=== PATIENT | male | born 1970 | race Caucasian/White ===

== ENCOUNTER 2020-04-15 14:12 | Emergency (ER) | payer OTHER, SELFPAY ==
--- NOTE | ~2020-04-15 | CT_ITS ---
EXAMINATION: CT abdomen pelvis w con EXAM DATE: 04/15/2020 15:59 INDICATION: Right-sided abdominal pain. Constipation. TECHNIQUE: Spiral CT of the abdomen and pelvis was performed following intravenous injection of 100 m L Omnipaque 350. Axial, coronal and sagittal images were reviewed. The dose-length product (DLP) fo r this examination was 1680.72 mGy-cm. The exposure was tailored according to patient size (auto mA exposure control), and iterative reconstruction (ASIR) was used as additional dose reduction techniqu e. Comparison is made to prior examination from 03/06/2018. FINDINGS: There is a hypodensity in the left liver lobe medial segment measuring 1.3 cm consistent wi th a cyst. The spleen, pancreas, and adrenal glands are unremarkable. There are gallstones within a n otherwise unremarkable gallbladder. No evidence of obstructive biliary disease. Portal and spleni c veins are patent. Kidneys enhance symmetrically. There is no hydronephrosis. The prostate is un remarkable. The bladder is unremarkable. There is no retroperitoneal or pelvic lymphadenopathy. S mall bilateral inguinal fat-containing hernias. The appendix is normal. The stomach and small bowel are unremarkable. There is expected amount of c olonic stool. No free intraperitoneal gas. The heart is normal in size. There are no pericardial or pleural effusions. The lung bases are unremarkable. There are no osteoblastic or osteolytic les ions identified. IMPRESSION: 1. No acute intra-abdominal findings. 2. Cholelithiasis. Reviewed, dictated and finalized at location A.
[2020-04-15 14:25] VITALS: BP 161/69; PULSE 93; RESP 20; TEMP 37.1; O2SAT 96
--- NOTE | 2020-04-15 14:31 | ED.ABDPAIN ---
HPI - Abdominal Pain General Chief Complaint: Abdominal Pain Stated Complaint: abd pain Time Seen by Provider: 04/15/20 14:16 Source: RN notes reviewed History of Present Illness HPI narrative: Patient presents emergency department from home for right lower quadrant ivy pain. Patient states that symptoms began this morning. Pain is located in the right lower quadrant radiates into the right testicle. Pain is described as sharp and stabbing. Patient states he has had similar intermittent pain over the past 2 months. He denies any fevers or chills nausea vomiting diarrhea dysuria or any other symptoms. He states he took ibuprofen at home with minimal relief Related Data Home Medications Medication Instructions Recorded Confirmed bupropion HCl 200 mg PO BID 04/15/20 trazodone 100 mg PO HS 04/15/20 vortioxetine [Trintellix] 20 mg PO DAILY 04/15/20 Allergies Allergy/AdvReac Type Severity Reaction Status Date / Time No Known Allergies Allergy Mild Verified 04/15/20 14:32 Review of Systems Review of Systems: Narrative: Gen.: Denies fevers or chills ENT: Denies congestion Respiratory: Denies shortness of breath or cough CV: Denies chest pain or palpitations GI: See HPI denies burning, urgency, frequency or hematuria Musculoskeletal: Denies back pain or muscle pain Neuro: Denies numbness, tingling, weakness or focal weakness Skin: Denies rash Except as documented, all other systems reviewed and negative PMFSH Past Medical History Medical History (Updated 04/15/20 @ 16:22 by Howie Del Valle DO) Patient denies significant medical history Social History Social History (Updated 04/15/20 @ 14:32 by Howie Del Valle DO) Smoking status: Never smoker Gender identity (if verbalized by the patient): Female Exam Narrative: Exam Narrative: APPEARANCE: No acute distress, nontoxic, resting in bed HEENT: Normocephalic, atraumatic, OMM RESPIRATORY: No respiratory distress, clear to auscultation bilaterally with no rhonchi wheezing or rales CARDIOVASCULAR: RRR s murmur ABDOMINAL: Soft, nondistended, tender palpation right upper quadrant, no tenderness right lower quadrant, left upper quadrant left lower quadrant, no rebound or guarding MUSCULOSKELETAl: Moves all extremities. No clubbing, cyanosis or edema. NEURO: Awake and alert. Following commands, speech normal, no focal deficits SKIN:: Warm, dry. Normal Color PSYCHIATRIC: Normal affect/mood Course Course Emergency Course: Patient states that they are feeling much better at this time. States abdominal pain has resolved. Repeat abdominal exam shows the patient's abdomen to be soft and nontender. Discussed with patient results of workup and diagnosis. Discussed need for follow-up with primary care physician, reasons to return to the emergency department in proper use of medication. Patient understands and agrees to current treatment plan. Discussed with patient gallstones need to follow-up with PCP as an outpatient Vital Signs Vital signs: Vital Signs Temperature 98.8 F 04/15/20 14:25 Pulse Rate 93 04/15/20 14:25 Respiratory Rate 20 04/15/20 14:25 Blood Pressure 161/69 H 04/15/20 14:25 Pulse Oximetry 96 04/15/20 14:25 Temperature 98.8 F 04/15/20 14:25 Pulse Rate 93 04/15/20 14:25 Respiratory Rate 20 04/15/20 14:25 Blood Pressure 161/69 H 04/15/20 14:25 Pulse Oximetry 96 04/15/20 14:25 MDM - Abdominal Pain MDM Narrative Medical decision making narrative: Patient's abdomen is soft without significant pain or signs of surgical abdomen on serial exams. Lab and x-ray evaluations are reviewed and patient is felt to be a reasonable candidate for outpatient management. Patient was instructed as to limitations of x-ray and laboratory evaluation and encouraged to return to ED or primary physician for repeat exam in 12 hours if continued or worsening pain Lab Data Result diagrams: 04/15/20 15:03 04/15/20 15:03
[2020-04-15] MEDS: SODIUM CHLORIDE 0.9% IV 1,000 ML 999 ML IV CONT (14:55)
[2020-04-15 15:24] LABS: Basophils Absolute Auto 0.1 K/mm3 (0.0-0.1); Basophils Percent Auto 1.1 % (0.2-1.2); Eosinophils Absolute Auto 0.2 K/mm3 (0-0.3); Eosinophils Percent Auto 2.8 % (0-4.4); Hematocrit 41.1 % (42.0-52.0); Hemoglobin 14.1 g/dL (14.0-18.0); Immature Granulocyte Absolute 0.03 K/mm3 (0.00-0.031); Immature Granulocyte Percent A 0.4 % (0-0.5); Lymphocytes Absolute Auto 2.16 K/mm3 (0.9-3.2); Lymphocytes Percent Auto 27.3 % (18.3-44.2); Mean Corpuscular HGB Conc 34.3 g/dl (32-36); Mean Corpuscular Hemoglobin 30.1 pg (26-34); Mean Corpuscular Volume 87.8 fl (80-100); Mean Platelet Volume 9.3 fl (7.4-10.4); Monocytes Absolute Auto 0.7 K/mm3 (0.1-0.6); Monocytes Percent Auto 8.7 % (2.6-8.5); Neutrophils Absolute Auto 4.7 K/mm3 (1.3-6.7); Neutrophils Percent Auto 59.7 % (45.5-73.1); Platelet Count Result 265 k/mm3 (150-375); Red Blood Count 4.68 M/mm3 (4.6-6.20); Red Cell Distribution Width 12.3 % (11.5-14.5); White Blood Count 7.9 K/mm3 (4.5-10.0)
[2020-04-15 15:25] LABS: Alanine Aminotransferase 36 U/L (4-50); Albumin Level 4.2 g/dL (3.5-5.1); Alkaline Phosphatase 92 U/L (38-126); Aspartate Amino Transferase 31 U/L (17-59); Bilirubin,Total 0.3 mg/dL (0.2-1.3); Blood Urea Nitrogen 9 mg/dL (9-20); Carbon Dioxide 25 mmol/L (22-30); Chloride 104 mmol/L (98-107); Estimated CRCL calculation 119 ml/min; Estimated Glomerular Filt Rate > 60; Glucose 97 mg/dL (75-110); Lipase 68 U/L (23-300); Potassium 4.1 mmol/L (3.4-5.0); Sodium 137 mmol/L (137-145)
[2020-04-15 15:28] LABS: Add Urine Microscopic? YES; Appearance Urine Clear (Clear); Bilirubin Urine Negative (Negative); Blood Urine Negative (Negative); Color Urine Yellow (Yellow); Glucose Urine UA Negative (Negative); Ketones Urine Negative (Negative); Leukocyte Esterase Ur Trace LEU/UL (Negative); Nitrate Urine Negative (Negative); Protein Urine Negative (Negative); RBC Urine 0-2 /hpf (0-2); Urobilinogen Urine Negative mg/dL (<2.0); WBC Urine 0-3 /hpf
[2020-04-15 16:00] VITALS: PULSE 75; RESP 20; O2SAT 98
[2020-04-15 16:45] VITALS: BP 127/70; PULSE 76; RESP 20; O2SAT 98
== END 2020-04-15 17:01 | disposition home or self-care (01) ==
PROVIDERS: Emergency Provider Emergency Medicine; PCP Family Medicine Adolescent Medicine
DX: K80.20 Calculus of gallbladder without cholecystitis without obstruction (principal)
CPT/HCPCS: 36415; 74177; 80053; 81001; 83690; 85025; 96361; 96365; 99284; J0131; J7030; Q9967

== ENCOUNTER 2020-04-17 06:28 | Emergency (ER) | payer OTHER, SELFPAY ==
[2020-04-17] VITALS (11 sets, daily range): BP systolic 138–153; BP diastolic 60–78; PULSE 72–87; RESP 20; TEMP 37.1; O2SAT 96–98
--- NOTE | ~2020-04-17 | US_ITS ---
US scrotum doppler INDICATION: Right upper quadrant abdominal pain radiating to the right testicle TECHNIQUE: Testicular sonogram utilizing grayscale and color Doppler FINDINGS: The testes are normal in size and appearance. No focal lesions are seen. The right testes measures 4.3 x 2.8 x 2.3 cm centimeters, and the left testis measures 3.8 x 2.6 x 2.1 cm cm. There is normal vascular flow to both testes. The right and left epididymides appear normal. There is a small right hydrocele. There is a right varicocele. IMPRESSION: 1. Right varicocele. 2: Small right hydrocele. Reviewed, dictated and finalized at location A.
--- NOTE | ~2020-04-17 | US_ITS ---
US right upper quadrant INDICATION: Right upper quadrant abdominal pain. Gallstones. PROCEDURE: Realtime right upper abdominal ultrasound. COMPARISON: No prior studies for comparison. FINDINGS: Pancreas not well visualized due to bowel gas. There is a complicated 2.5 cm cyst with int ernal septations. There is normal directional flow in the portal vein. There are gallstones. Common bile duct measures 3 mm. No sonographic Young's sign. IMPRESSION: 1: Cholelithiasis. No secondary findings to suggest cholecystitis. Reviewed, dictated and finalized at location A.
--- NOTE | 2020-04-17 06:32 | ED.ABDPAIN ---
HPI - Abdominal Pain General Chief Complaint: Abdominal Pain <Nely Mehta MD - Last Filed: 04/17/20 07:16> Stated Complaint: abd pain <Nely Mehta MD - Last Filed: 04/17/20 07:16> Time Seen by Provider: 04/17/20 06:32 <Nely Mehta MD - Last Filed: 04/17/20 07:16> Source: patient <Nely Mehta MD - Last Filed: 04/17/20 07:16> Mode of arrival: ambulatory <Nely Mehta MD - Last Filed: 04/17/20 07:16> Limitations: no limitations <Nely Mehta MD - Last Filed: 04/17/20 07:16> History of Present Illness HPI narrative: Patient is a 50-year-old male who presents to the emergency department for evaluation of abdominal pain. Patient reports onset of right upper quadrant abdominal pain earlier this morning. Pain is currently moderate in nature with radiation into the right middle back and right flank. Patient also reports some radiation of the pain into his right testicle. No painful urination, frequency or hematuria. Patient states he was seen in this emergency department 2 days ago and told he had gallstones. He has no known history of kidney stones per the patient. Patient reports nausea without emesis. No fever. No diarrhea or constipation. Patient also reports pain underneath his right breastbone. Patient denies shortness of breath. <Nely Mehta MD - Last Filed: 04/17/20 07:16> Related Data Home Medications: Home Medications Medication Instructions Recorded Confirmed bupropion HCl 200 mg PO BID 04/15/20 trazodone 100 mg PO HS 04/15/20 vortioxetine [Trintellix] 20 mg PO DAILY 04/15/20 <Nely Mehta MD - Last Filed: 04/17/20 07:16> Allergies/Adverse Reactions: Allergies Allergy/AdvReac Type Severity Reaction Status Date / Time No Known Allergies Allergy Mild Verified 04/15/20 14:32 <Nely Mehta MD - Last Filed: 04/17/20 07:16> Review of Systems Review of Systems: Narrative: CONSTITUTIONAL: Denies fever, chills, or sweats. CARDIOVASCULAR: Reports right-sided chest pain RESPIRATORY: Denies cough or dyspnea. GASTROINTESTINAL: Reports right-sided abdominal pain, nausea GENITOURINARY: Denies dysuria or hematuria. SKIN: Denies rash or itching. MUSCULOSKELETAL: Reports right back pain NEUROLOGIC: Denies headache, numbness, or weakness. <Nely Mehta MD - Last Filed: 04/17/20 07:16> [facility] Past Medical History Medical History: Medical History (Updated 04/17/20 @ 08:48 by Bianca Matta MD) Asthma Depression Patient denies significant medical history <Nely Mehta MD - Last Filed: 04/17/20 07:16> Surgical History Surgical History: Surgical History (Updated 04/17/20 @ 11:09 by Lois Shaw) Cataract extraction status <Nely Mehta MD - Last Filed: 04/17/20 07:16> Family History Family History: Family History (Updated 04/17/20 @ 11:10 by Lois Shaw) Father Malignant neoplasm of prostate Grandparent Heart disease <Nely Mehta MD - Last Filed: 04/17/20 07:16> Social History Social History: Social History (Updated 04/17/20 @ 11:13 by Lois Shaw) Smoking status: Former smoker Smoking end date: 11/07/99 Alcohol use details: Very rare alcohol use Gender identity (if verbalized by the patient): Female <Nely Mehta MD - Last Filed: 04/17/20 07:16> Exam Narrative: Exam Narrative: GENERAL: Awake, alert, conversant HEAD: Normocephalic, atraumatic. EYES: PERRLA and EOMI. ENT: Nares clear, no rhinorrhea or epistaxis. Mucous membranes moist. NECK: Supple. CHEST: No respiratory distress, breathing even and non labored HEART: Regular rate, sinus rhythm ABDOMEN: Mild distention, right upper quadrant tenderness, no CVA tenderness EXTREMITIES: Normal range of motion. No edema. SKIN: Warm, dry, no rash. NEURO:No focal deficits. Alert and oriented x3 <Nely Mehta MD - Last Filed: 04/17/20 07:1
--- NOTE | 2020-04-17 06:39 | ECG_ITS ---
Measurements Intervals [place] Rate: 80 P: 28 WI: 133 QRS: 13 QRSD: 97 T: 29 QT: 366 QTc: 422 Interpretive Statements SINUS RHYTHM LOW QRS VOLTAGE IN PRECORDIAL LEADS BASELINE ARTIFACT- V1 BORDERLINE ECG Electronically Signed On 04-17-2020 7:08:53 CDT by Rick Saucedo D.O.
[2020-04-17] MEDS: ONDANSETRON INJ 4 MG/2 ML VIAL IV PUSH (06:47)
[2020-04-17] MEDS: MORPHINE SULFATE 4 MG/ML INJ IV PUSH (06:48)
[2020-04-17] MEDS: SODIUM CHLORIDE 0.9% IV 1,000 ML 999 ML IV CONT (06:48)
[2020-04-17 06:52] LABS: Basophils Absolute Auto 0.1 K/mm3 (0.0-0.1); Basophils Percent Auto 0.8 % (0.2-1.2); Eosinophils Absolute Auto 0.2 K/mm3 (0-0.3); Eosinophils Percent Auto 2.5 % (0-4.4); Hematocrit 41.5 % (42.0-52.0); Hemoglobin 14.1 g/dL (14.0-18.0); Immature Granulocyte Absolute 0.02 K/mm3 (0.00-0.031); Immature Granulocyte Percent A 0.2 % (0-0.5); Lymphocytes Percent Auto 22.9 % (18.3-44.2); Mean Corpuscular Hemoglobin 30.5 pg (26-34); Mean Corpuscular Volume 89.6 fl (80-100); Mean Platelet Volume 9.5 fl (7.4-10.4); Monocytes Absolute Auto 0.7 K/mm3 (0.1-0.6); Monocytes Percent Auto 7.6 % (2.6-8.5); Neutrophils Absolute Auto 6.1 K/mm3 (1.3-6.7); Platelet Count Result 257 k/mm3 (150-375); Red Blood Count 4.63 M/mm3 (4.6-6.20); Red Cell Distribution Width 12.3 % (11.5-14.5); White Blood Count 9.2 K/mm3 (4.5-10.0)
[2020-04-17 07:03] LABS: INR 1.1; Prothrombin Time 13.9 Seconds (11.1-14.7)
[2020-04-17 07:05] LABS: Partial Thromboplastin Time 28.2 SECONDS (22.3-36.8)
[2020-04-17 07:10] LABS: Alanine Aminotransferase 33 U/L (4-50); Albumin Level 4.3 g/dL (3.5-5.1); Alkaline Phosphatase 93 U/L (38-126); Aspartate Amino Transferase 34 U/L (17-59); Bilirubin,Total 0.3 mg/dL (0.2-1.3); Blood Urea Nitrogen 13 mg/dL (9-20); Calcium 8.5 mg/dL (8.4-10.2); Carbon Dioxide 24 mmol/L (22-30); Chloride 105 mmol/L (98-107); Estimated Glomerular Filt Rate > 60; Glucose 117 mg/dL (75-110); Lipase 101 U/L (23-300); Potassium 4.3 mmol/L (3.4-5.0); Sodium 137 mmol/L (137-145)
[2020-04-17 07:15] LABS: Troponin I < 0.012 ng/mL (0.000-0.034)
--- NOTE | 2020-04-17 08:20 | PC.NURSE ---
Sleeping. In no distress.
[2020-04-17 08:27] LABS: Add Urine Microscopic? NO; Appearance Urine Clear (Clear); Bilirubin Urine Negative (Negative); Blood Urine Negative (Negative); Color Urine Colorless (Yellow); Glucose Urine UA Negative (Negative); Ketones Urine Negative (Negative); Leukocyte Esterase Ur Negative LEU/UL (Negative); Nitrate Urine Negative (Negative); Protein Urine Negative (Negative); RBC Urine 0-2 /hpf (0-2); Specific Grav Ur 1.008 (1.001-1.035); Urobilinogen Urine Negative mg/dL (<2.0); WBC Urine 0-3 /hpf
== END 2020-04-17 09:45 | disposition home or self-care (01) ==
PROVIDERS: Emergency Medicine; Emergency Provider General Practice; PCP Family Medicine Adolescent Medicine
DX: K80.20 Calculus of gallbladder without cholecystitis without obstruction (principal); J45.909 Unspecified asthma, uncomplicated; F32.9 Major depressive disorder, single episode, unspecified; Z98.49 Cataract extraction status, unspecified eye; Z87.891 Personal history of nicotine dependence; I86.1 Scrotal varices; N43.3 Hydrocele, unspecified
CPT/HCPCS: 36415; 76705; 76870; 80053; 81003; 83690; 84484; 85025; 85610; 85730; 93005; 93976; 96361; 96374; 96375; 99284; J2270; J2405; J7030

== ENCOUNTER 2020-04-25 00:46 | Outpatient (CLI) | payer OTHER, SELFPAY ==
[2020-04-25 17:52] LABS: SARS-CoV-2 RNA PCR Negative
== END 2020-04-25 00:47 | disposition home or self-care (01) ==
LOC: ANHCOVIDDT 00:47
PROVIDERS: PCP Family Medicine Adolescent Medicine; Visit Provider Surgery
DX: Z20.828 Contact with and (suspected) exposure to other viral communicable diseases (principal); Z01.812 Encounter for preprocedural laboratory examination
CPT/HCPCS: 87635; C9803; U0003

== ENCOUNTER 2020-04-25 09:34 | Outpatient (CLI) | payer OTHER, SELFPAY ==
[2020-04-25 10:27] LABS: Amylase 56 U/L (30-110)
== END 2020-04-25 09:35 | disposition home or self-care (01) ==
PROVIDERS: PCP Family Medicine Adolescent Medicine; Visit Provider Surgery
DX: K80.20 Calculus of gallbladder without cholecystitis without obstruction (principal); Z01.812 Encounter for preprocedural laboratory examination
CPT/HCPCS: 36415; 82150; 86850; 86900; 86901

== ENCOUNTER 2020-04-28 02:39 | Day surgery (SDC) | payer OTHER, SELFPAY ==
[2020-04-23 10:29] VITALS: BMI 39.3
[2020-04-28] VITALS (10 sets, daily range): BP systolic 117–146; BP diastolic 51–91; PULSE 56–81; RESP 10–16; TEMP 36.6–36.7; O2SAT 94–100
[2020-04-28] MEDS: LACTATED RINGERS 1,000 ML 30 ML IV CONT ×2 (06:30→08:40)
--- NOTE | 2020-04-28 06:51 | WPDANESEPPF ---
Anes - Initial Pre Proc Eval Procedure: Operation Date: 04/28/20 07:30 Proposed Procedures p Laparoscopic Cholecystectomy - Ilana Abbott MD Date/Time: 04/28/20 06:51 Surgeon: Ilana Abbott MD Pre Op Diagnosis: Symptomatic Cholelithiasis Patient Data Age: 50 Gender: M Height: 1.83 m Weight: 131.54 kg Allergies Allergy/AdvReac Type Severity Reaction Status Date / Time No Known Allergies Allergy Mild Verified 04/23/20 10:06 Home Medications Medication Instructions Recorded Confirmed Type bupropion HCl 200 mg PO BID 04/15/20 04/23/20 History famotidine [Pepcid] 20 mg PO DAILY #14 tablet 04/15/20 04/23/20 Rx trazodone 100 mg PO HS 04/15/20 04/23/20 History vortioxetine [Trintellix] 20 mg PO DAILY 04/15/20 04/23/20 History hydrocodone-acetaminophen 1 tablet PO Q6H PRN #7 tablet 04/17/20 04/23/20 Rx multivitamin 1 tablet PO DAILY 04/23/20 04/23/20 History Patient hx anesthesia problems: none Family hx anesthesia problems: none COUNTS INCLUDE 234 BEDS AT THE [facility] Past Medical History Medical History (Updated 04/22/20 @ 13:58 by Lois Shaw) Asthma Depression Surgical History Surgical History (Updated 04/25/20 @ 13:18 by Seth Sears DO) Cataract extraction status History of uvulopalatopharyngoplasty Social History Social History (Updated 04/22/20 @ 13:28 by Mary Agustin MA) Smoking status: Former smoker Smoking end date: 11/07/99 Alcohol intake: current Substance use: unknown 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 Questions were solicited and answers provided to the satisfaction of the patient/family/POA.
[2020-04-28] MEDS: IBUPROFEN IV 800 MG/200 ML 800 MG/200 ML BAG 400 MG IVPB (07:00)
--- NOTE | 2020-04-28 07:19 | WPDHPUPDATE1 ---
History and Physical Update Update Date/Time: 04/28/20 07:19 History and Physical has been reviewed, including an updated exam of the patient. There are NO changes in the patient's condition. Risks, benefits, and alternatives have been discussed and questions answered. Patient agrees to proceed with procedure.
[2020-04-28] MEDS: ceFAZolin 3 GM/D5W 100 ML 100 ML IVPB (07:25)
[2020-04-28] MEDS: BUPIVACAINE/EPINEPHRINE 0.5% 30 ML VIAL INFILTRATE (07:57)
--- NOTE | 2020-04-28 08:43 | PM.PROC ---
Procedure Note - Detailed Date of procedure: 04/28/20 Pre-op diagnosis: Symptomatic Cholelithiasis Post-op diagnosis: other (cholecystitis, cholelithiasis) Procedure performed: laparoscopic cholecystectomy Description of procedure: The patient was taken to the operating room placed in the supine position. After adequate induction of general anesthesia, the patient was prepped and draped in normal sterile fashion. A time-out was then performed to verify the patient's identity as well as the procedure being performed. I then made a 5 mm incision in the infraumbilical region. Through this, a Veress needle was placed into the peritoneal cavity and CO2 gas was then insufflated. After adequate pneumoperitoneum was achieved, the Veress needle was removed and a 5 mm trocar was placed through this incision. I then placed the laparoscope through this trocar site and under direct visualization placed a further 12 mm subxiphoid port as well as 2 additional 5 mm ports in the right upper abdomen. The gallbladder was then identified and was noted to be inflamed and densely covered with omental adhesions. I cleared the omental adhesions both bluntly and with electrocautery. Once cleared, I was able to place a grasper at the dome of the gallbladder and this was retracted anterior and cephalad up over the liver. A 2nd retractor was then placed at the infundibulum and retracted laterally, this allowed visualization of the triangle of Calot. I then was able to visualize the cystic duct in its entirety from its proximal insertion into the gallbladder, to its distal junction with the common hepatic/common bile duct junction. At this point, I carefully skeletonized the proximal cystic duct with the [place] dissector. I then clipped and transected the proximal cystic duct. Next I visualized the cystic artery. Again the artery was skeletonized, clipped, and transected. I then used the Bovie cautery to take down the peritoneal attachments of the gallbladder off the liver bed. This was done with difficulty, given the amount of inflammation and adhesions. Once the gallbladder specimen was completely detached, an endo-pouch was placed through the 12 mm port site. I then placed the gallbladder specimen into the Endo pouch and removed the endo-pouch from the 12 mm port site. The specimen will now be sent to pathology for further review. I then copiously irrigated the right upper quadrant. Hemostasis was noted in the liver bed, the clips were noted to be in good position on both the cystic duct stump and the cystic artery stump. No other pathology was noted in the right upper quadrant. I then moved the laparoscope to the subxiphoid port. No iatrogenic injury or other pathology was noted in the lower abdomen. At this point, the abdomen was desufflated and all ports removed. The fascia of the 12 mm subxiphoid port was closed with a 0 Vicryl figure of 8 suture. All port sites were then closed with 4.O Monocryl subcuticular sutures. Dermabond was placed on each incision. The patient tolerated the procedure well, was extubated in the operating room postoperative and will be transferred to the recovery room in stable condition. Implants: none Anesthesia: [facility] Surgeon: Ilana Abbott MD Estimated blood loss (mL): 5 Drains: No Packing: No Pathology: yes Complications: No immediate complications Condition: stable Disposition: PACU
--- NOTE | 2020-04-28 09:50 | SUR.PHASEI ---
0950 - PT'S FAMILY UPDATED ON PT'S STATUS.
== END 2020-04-28 11:01 | disposition home or self-care (01) ==
PROVIDERS: PCP Family Medicine Adolescent Medicine; Visit Provider Surgery
PROC: 0FT44ZZ Resection of Gallbladder, Percutaneous Endoscopic Approach (ICD-10-PCS; CPT 47562; principal; 2020-04-28 07:30)
DX: K80.10 Calculus of gallbladder with chronic cholecystitis without obstruction (principal); J45.909 Unspecified asthma, uncomplicated; F32.9 Major depressive disorder, single episode, unspecified; Z87.891 Personal history of nicotine dependence; E66.9 Obesity, unspecified; Z68.39 Body mass index [BMI] 39.0-39.9, adult
CPT/HCPCS: 47562; 88304; A9270; C1713; J0131; J0690; J1100; J1741; J2250; J2405; J2704; J2710; J3010; J7030; J7120

== ENCOUNTER 2021-01-13 09:32 | Outpatient (CLI) | payer OTHER, SELFPAY | END 2021-01-13 09:33 | disposition home or self-care (01) | LOC: ANHCOVIDVC 09:32 | PROVIDERS: PCP Family Medicine Adolescent Medicine | DX: Z23 Encounter for immunization (principal) | CPT/HCPCS: 0001A; 91300 ==

== ENCOUNTER 2021-02-03 09:27 | Outpatient (CLI) | payer OTHER, SELFPAY | END 2021-02-03 09:28 | disposition home or self-care (01) | LOC: ANHCOVIDVC 09:27 | PROVIDERS: PCP Family Medicine Adolescent Medicine | DX: Z23 Encounter for immunization (principal) | CPT/HCPCS: 0002A; 91300 ==

== ENCOUNTER 2021-12-09 21:44 | Emergency (ER) | payer OTHER, SELFPAY ==
--- NOTE | ~2021-12-09 | XR_ITS ---
EXAMINATION: XR finger 3rd LT min 2V EXAM DATE: 12/09/2021 22:04 INDICATION: drillbit vs finger . TECHNIQUE: Left 3rd finger frontal, lateral and oblique projections obtained and reviewed. There i s no prior study for comparison. FINDINGS: There are no acute fractures or dislocations identified. There is no subcutaneous gas. Th ere may be soft tissue puncture injury along the volar aspect of the distal phalanx. There are no ra diopaque foreign bodies. IMPRESSION: No acute osseous findings. Reviewed, dictated and finalized at location G. MIXER IMPRESSION: No acute osseous findings.
[2021-12-09 21:51] VITALS: BP 133/68; PULSE 83; RESP 16; TEMP 36.4; O2SAT 99
--- NOTE | 2021-12-09 22:05 | ED.UPPEXIN ---
HPI - Extremity Injury (Upper) General Chief Complaint: Extremity Injury, Upper Stated Complaint: finger injury Time Seen by Provider: 12/09/21 21:52 Source: patient Mode of arrival: ambulatory Limitations: no limitations History of Present Illness HPI narrative: 51-year-old otherwise healthy here with planes of puncture wound to the left third finger with a drill bit happened few hours ago at home. he states he is not up to date on tetanus. complaint: injury to: finger (left 3 rd finger ) Onset (ago): hour(s) (1) Other injuries: none Handedness: right Place: home Severity: mild Related Data Home Medications Medication Instructions Recorded Confirmed aripiprazole 2.5 mg 12/09/21 bupropion HCl 300 mg PO 12/09/21 vilazodone [Viibryd] 20 mg 12/09/21 Allergies Allergy/AdvReac Type Severity Reaction Status Date / Time No Known Allergies Allergy Mild Verified 12/09/21 21:53 Review of Systems Review of Systems: All systems reviewed & are unremarkable except as noted in HPI and below Constitutional: Constitutional: Reports no additional constitutional complaints Eyes: Eyes: Reports no additional eye complaints ENT: Reports system reviewed and no additional complaints, except as documented Cardiovascular: Cardiovascular: Reports no additional cardiovascular complaints Respiratory: Respiratory: Reports no additional respiratory complaints Gastrointestinal: Gastrointestinal: Reports no additional gastrointestinal complaints Musculoskeletal: Musculoskeletal: Reports as per HPI Integumentary/Breasts: Skin/Breast: Reports system reviewed and no additional complaints, except as docu PMFSH Past Medical History Medical History (Updated 12/09/21 @ 22:12 by Eric Frank MD) Asthma Depression Surgical History Surgical History Cataract extraction status History of uvulopalatopharyngoplasty Hx laparoscopic cholecystectomy Family History Family History Father Malignant neoplasm of prostate Grandparent Heart disease Social History Social History Smoking status: Former smoker Smoking end date: 11/07/99 Alcohol intake: current Alcohol use details: Very rare alcohol use Substance use: unknown 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 HEAD: Normocephalic, atraumatic. EYES: PERRLA and EOMI. NECK: Supple. CHEST: Clear to auscultation. No respiratory distress. HEART: Regular rate and rhythm. No murmur heard. Normal peripheral pulses. EXTREMITIES: Normal range of motion. No edema. a small puncture wound noted on the tip of the left 3 rd finger , with entry and exit wound with minimal bleeding. SKIN: Warm, dry, no rash. NEURO: No focal deficits. Alert and oriented x3. PSYCH: Normal mood and affect. Course Vital Signs Vital signs: Vital Signs Temperature 36.4 C 12/09/21 21:51 Pulse Rate 83 12/09/21 21:51 Respiratory Rate 16 12/09/21 21:51 Blood Pressure 133/68 12/09/21 21:51 Pulse Oximetry 99 12/09/21 21:51 Temperature 36.4 C 12/09/21 21:51 Pulse Rate 83 12/09/21 21:51 Respiratory Rate 16 12/09/21 21:51 Blood Pressure 133/68 12/09/21 21:51 Pulse Oximetry 99 12/09/21 21:51 MDM - Extremity Injury (Upper) Imaging Data My impression: no fracture Discharge Plan Discharge Clinical Impression: Puncture wound of finger of left hand Qualifiers: Encounter type: initial encounter Qualified Code(s): S61.239A - Puncture wound without foreign body of unspecified finger without damage to nail, initial encounter Patient Disposition: Home, Self-Care Condition: Stable Instructions: Antibiotic Form, Puncture Wound (DC) Prescripti
[2021-12-09] MEDS: TETANUS,DIPHTHERIA,AC PERTUSSIS ADULT (0.5 ML) BOOSTRIX IM (22:36)
== END 2021-12-09 22:45 | disposition home or self-care (01) ==
PROVIDERS: Emergency Provider Family Medicine; PCP Family Medicine Adolescent Medicine
DX: S61.233A Puncture wound without foreign body of left middle finger without damage to nail, initial encounter (principal); W29.8XXA Contact with other powered hand tools and household machinery, initial encounter; J45.909 Unspecified asthma, uncomplicated; F32.9 Major depressive disorder, single episode, unspecified; Z23 Encounter for immunization
CPT/HCPCS: 73140; 90471; 90715; 99283

== ENCOUNTER 2023-12-02 06:22 | Emergency (ER) | payer BC, SELFPAY ==
[2023-12-02 06:24] VITALS: BP 125/67; PULSE 110; RESP 16; TEMP 36.4; O2SAT 99
--- NOTE | 2023-12-02 07:25 | PC.NURSE ---
Assumed care of pt. Pt states he is anxious I think I have worked myself up .
--- NOTE | 2023-12-02 07:38 | ED.GENADULT ---
HPI - General Adult General Chief complaint: Urogenital-Male Stated complaint: haven't been able to urinate for 12 hours Time Seen by Provider: 12/02/23 07:02 History of Present Illness HPI narrative: patient is a 53-year-old male who presents ER with concerns of having difficulty urinating. Over last several months he has developed nocturia or he is urinating to 3 times tonight. His stream has become weak and he is dribbling. no dysuria or fever incontinence. He did not urinate last night and was concerned that he was retaining today. He was able to urinate in a shower prior to arrival and bladder scan here shows minimal urine. Patient reports he does have some anxiety to to his father having had prostate cancer. Denies weight loss or back pain. Has follow-up scheduled with his PCP. Related Data Home Medications Medication Instructions Recorded Confirmed bupropion HCl 300 mg 24 hr tablet, 300 mg PO 12/09/21 12/16/22 extended release dextroamphetamine-amphetamine 15 15 mg PO BID 12/16/22 12/16/22 mg tablet (Adderall) Allergies Allergy/AdvReac Type Severity Reaction Status Date / Time No Known Allergies Allergy Mild Verified 12/02/23 06:40 Review of Systems Constitutional: Constitutional: Reports no additional constitutional complaints Gastrointestinal: Gastrointestinal: Reports no additional gastrointestinal complaints Genitourinary: Genitourinary: Denies hematuria, Reports oliguria, Denies dysuria, Reports urinary frequency and Denies urinary incontinence Musculoskeletal: Musculoskeletal: Reports no additional musculoskeletal complaints [facility] Past Medical History Medical History (Updated 12/02/23 @ 07:41 by Donis Ledesma MD) Asthma Depression 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) Surgical History Surgical History Cataract extraction status History of uvulopalatopharyngoplasty Hx laparoscopic cholecystectomy 04/26 Family History Family History Father Malignant neoplasm of prostate Grandparent Heart disease Mother Kidney stone Social History Social History Smoking status: Former smoker Tobacco type: cigarettes Second hand tobacco smoke exposure: No Smoking end date: 11/07/99 Alcohol intake: current Alcohol use details: Very rare alcohol use Substance use: unknown Substance use type: does not use Living arrangements: alone Occupation/Education: occupation 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 HEAD: Normocephalic, atraumatic. CHEST: Clear to auscultation. No respiratory distress. HEART: Regular rate and rhythm. Normal peripheral pulses. ABDOMEN: Soft, nontender, nondistended EXTREMITIES: Normal range of motion. No edema. NEURO: Alert and oriented x3. PSYCH: Normal mood and affect. Course Course Emergency Course: Will start on Flomax to help with symptoms. Recommend follow-up with PCP to obtain PSA testing. Patient verbalized understanding. Offered urinalysis which was declined. Discharge home. Vital Signs Vital signs: Vital Signs Temperature 97.6 F 12/02/23 06:24 Pulse Rate 110 H 12/02/23 06:24 Respiratory Rate 16 12/02/23 06:24 Blood Pressure 125/67 12/02/23 06:24 Pulse Oximetry 99 12/02/23 06:24 Oxygen Delivery Room Air 12/02/23 06:24 Temperature 97.6 F 12/02/23 06:24 Pulse Rate 110 H 12/02/23 06:24 Respiratory Rate 16 12/02/23 06:24 Blood Pressure 125/67 12/02/23 06:24 Pulse Oximetry 99 12/02/23 06:24 Oxygen Delivery Room Air 01
[2023-12-02 07:49] VITALS: BP 120/60; PULSE 89; RESP 18; TEMP 36.6; O2SAT 98
== END 2023-12-02 07:51 | disposition home or self-care (01) ==
PROVIDERS: Emergency Provider Emergency Medicine; PCP Family Medicine Adolescent Medicine
DX: N40.1 Benign prostatic hyperplasia with lower urinary tract symptoms (principal); R35.1 Nocturia; J45.909 Unspecified asthma, uncomplicated; F32.A Depression, unspecified; Z98.49 Cataract extraction status, unspecified eye; Z90.49 Acquired absence of other specified parts of digestive tract; Z87.891 Personal history of nicotine dependence
CPT/HCPCS: 99283

== ENCOUNTER 2024-01-10 01:18 | Day surgery (SDC) | payer BC, SELFPAY ==
[2023-12-27 09:16] VITALS: BMI 36.6
--- NOTE | 2024-01-06 13:49 | SUR.PREOP ---
Patient called regarding upcoming procedure. Reviewed preop instructions, appointment times, and procedure prep.
[2024-01-10 13:10] VITALS: BP 110/58; PULSE 105; RESP 18; TEMP 36.1; O2SAT 96; BMI 35.2
[2024-01-10] MEDS: LACTATED RINGERS 1,000 ML 150 ML IV CONT (13:25)
--- NOTE | 2024-01-10 13:57 | WPDANESEPPF ---
Anes - Initial Pre Proc Eval Procedure: Operation Date: 01/10/24 14:00 Proposed Procedures p Screening Colonoscopy - Demetris Wall MD Date/Time: 01/10/24 13:57 Surgeon: Demetris Wall MD Pre Op Diagnosis: neoplasm screening Patient Data Age: 53 Gender: M Height: 1.83 m Weight: 117.8 kg Last Vital Signs Temp 96.9 F L 01/10/24 13:10 Pulse 105 H 01/10/24 13:10 Resp 18 01/10/24 13:10 BP 110/58 L 01/10/24 13:10 Pulse Ox 96 01/10/24 13:10 O2 Del Method Room Air 01/10/24 13:10 Allergies Allergy/AdvReac Type Severity Reaction Status Date / Time No Known Allergies Allergy Mild Verified 01/10/24 13:17 Home Medications Medication Instructions Recorded Confirmed Type dextromethorphan IR 45 1 tablet PO BID 12/19/23 01/10/24 History mg-bupropion ER 105 mg biphasic tablet (Auvelity) finasteride 5 mg tablet 5 mg PO DAILY #30 tabs 12/19/23 01/10/24 Rx tamsulosin 0.4 mg capsule 0.4 mg PO DAILY #30 caps 12/19/23 01/10/24 Rx Adults Multivitamin 1 tab-cap PO DAILY 12/27/23 01/10/24 History bupropion HCl 150 mg 24 hr tablet, 150 mg PO DAILY 12/27/23 01/10/24 History extended release cholecalciferol (vitamin D3) 125 125 mcg PO DAILY 12/27/23 01/10/24 History mcg (5,000 unit) tablet (Vitamin D3) magnesium 235 mg PO DAILY 12/27/23 01/10/24 History Patient hx anesthesia problems: none Family hx anesthesia problems: none Results Review: All pre-operative results and documents have been reviewed as part of the pre-operative evaluation. 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) Surgical History Surgical History Cataract extraction status History of uvulopalatopharyngoplasty Hx laparoscopic cholecystectomy 04/26 Family History Family History Father Malignant neoplasm of prostate Grandparent Heart disease Mother Kidney stone Social History Social History Smoking packs per day: 1 Smoking cigarettes per day: 20.0 Years smoked: 20 Smoking pack-years: 20.00 Smoking status: Former smoker Tobacco type: cigarettes Second hand tobacco smoke exposure: No Smoking end date: 11/07/99 Alcohol intake: current Alcohol use details: Very rare alcohol use Substance use: never Substance use type: does not use Living arrangements: with family Occupation/Education: occupation 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 Gender identity (if verbalized by the patient): Male Sexual Orientation (if Verbalized by the Patient): Straight or Heterosexual Spiritual care concerns: No Agree to blood products: Yes Anes - Eval Final PreProcedure Day of Procedure 01/10/24 13:57 Patient weight: obese Heart: regular rate and rhythm Lungs: clear to auscultation Airway: Mallampati scale class II Neurological: alert and oriented Last oral intake: >/= 8 hours ASA classification: III Emergent: no Anesthetic plan: proceed Anesthesia type and monitoring: general GIVS and standard monitoring Results Review: All pre-operative results and documents have been reviewed as part of the pre-operative evaluation. Informed Consent: The patient's anesthetic plan and its attendant risks and benefits were discussed with the patient/family/POA. Questions were solicited and answers provided to the satisfaction of the patient/family/POA.
--- NOTE | 2024-01-10 14:16 | PM.HPGS ---
History of Present Illness History of Present Illness Consent: Risks, benefits, and alternatives have been discussed and questions answered. Patient agrees to proceed with procedure. Chief complaint: neoplasm screening Narrative: Kevin Ann is a 53 year old male here for screening colonoscopy, last one 12 years ago Review of Systems Constitutional: Constitutional: Denies headache(s) and Denies weakness Eyes: Eyes: Denies blurry vision ENT: Reports Normal hearing present, Denies headache(s) and Denies neck pain Cardiovascular: Cardiovascular: Denies chest pain and Denies dyspnea Respiratory: Respiratory: Denies dyspnea Gastrointestinal: Gastrointestinal: Reports no additional gastrointestinal complaints Genitourinary: Genitourinary: Denies dysuria Musculoskeletal: Musculoskeletal: Denies neck pain Integumentary/Breasts: Skin/Breast: Denies dry skin Neurologic: Reports Normal hearing present, Denies headache(s) and Denies weakness Psychiatric: Psychiatric: Denies anxiety Endocrine: Endocrine: Denies change in body appearance Hematologic/Lymphatic: Hematologic/Lymphatic: Denies easy bleeding Allergic/Immunologic: Allergic/Immunologic: Denies urticaria PMFSH Past Medical History Medical History (Updated 01/10/24 @ 14:17 by Demetris Wall MD) Asthma Colon cancer screening Depression 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) Surgical History Surgical History Cataract extraction status History of uvulopalatopharyngoplasty Hx laparoscopic cholecystectomy 04/26 Family History Family History Father Malignant neoplasm of prostate Grandparent Heart disease Mother Kidney stone Social History Social History Smoking packs per day: 1 Smoking cigarettes per day: 20.0 Years smoked: 20 Smoking pack-years: 20.00 Smoking status: Former smoker Tobacco type: cigarettes Second hand tobacco smoke exposure: No Smoking end date: 11/07/99 Alcohol intake: current Alcohol use details: Very rare alcohol use Substance use: never Substance use type: does not use Living arrangements: with family Occupation/Education: occupation 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 Gender identity (if verbalized by the patient): Male Sexual Orientation (if Verbalized by the Patient): Straight or Heterosexual Spiritual care concerns: No Agree to blood products: Yes Meds Home Medications and Allergies Home Medications Medication Instructions Recorded Confirmed Type dextromethorphan IR 45 1 tablet PO BID 12/19/23 01/10/24 History mg-bupropion ER 105 mg biphasic tablet (Auvelity) finasteride 5 mg tablet 5 mg PO DAILY #30 tabs 12/19/23 01/10/24 Rx tamsulosin 0.4 mg capsule 0.4 mg PO DAILY #30 caps 12/19/23 01/10/24 Rx Adults Multivitamin 1 tab-cap PO DAILY 12/27/23 01/10/24 History bupropion HCl 150 mg 24 hr tablet, 150 mg PO DAILY 12/27/23 01/10/24 History extended release cholecalciferol (vitamin D3) 125 125 mcg PO DAILY 12/27/23 01/10/24 History mcg (5,000 unit) tablet (Vitamin D3) magnesium 235 mg PO DAILY 12/27/23 01/10/24 History Allergies Allergy/AdvReac Type Severity Reaction Status Date / Time No Known Allergies Allergy Mild Verified 01/10/24 13:17 Vital Signs Vital Signs - 24 hr 01/10/24 13:10 Temperature 96.9 F L Pulse Rate 105 H Respiratory Rate 18 Blood Pressure 110/58 L Pulse Oximetry 96 Oxygen Delivery Room Air Exam Const: General: comfortable and no acute distress HENMT: Face/Nose/Sinus: Normal nares present Eyes: General: appearance normal, both eyes and all related structures Neck: Neck: no JVD Resp: Auscultation: clear to auscultation bilaterally Cardio: Rate: regular rate Rhythm: regular rhythm GI: Inspection: non-dis
[2024-01-10 14:41] VITALS: BP 95/60; PULSE 85; RESP 18; O2SAT 92
[2024-01-10 14:51] VITALS: BP 95/69; PULSE 77; RESP 18; O2SAT 93
[2024-01-10 15:01] VITALS: BP 105/67; PULSE 88; RESP 18; O2SAT 95
== END 2024-01-10 15:09 | disposition home or self-care (01) ==
PROVIDERS: PCP Family Medicine Adolescent Medicine; Visit Provider Internal Medicine Gastroenterology
PROC: 0DJD8ZZ Inspection of Lower Intestinal Tract, Via Natural or Artificial Opening Endoscopic (ICD-10-PCS; CPT 45378; principal; 2024-01-10 14:00)
DX: Z12.11 Encounter for screening for malignant neoplasm of colon (principal); D12.2 Benign neoplasm of ascending colon; D12.5 Benign neoplasm of sigmoid colon; K57.30 Diverticulosis of large intestine without perforation or abscess without bleeding; K64.8 Other hemorrhoids; J45.909 Unspecified asthma, uncomplicated; F32.A Depression, unspecified; Z87.891 Personal history of nicotine dependence; E66.9 Obesity, unspecified; Z68.35 Body mass index [BMI] 35.0-35.9, adult
CPT/HCPCS: 45385; 88305; J2704; J7120

== ENCOUNTER 2024-09-04 08:00 | Outpatient (CLI) | payer BC, SELFPAY ==
--- NOTE | 2024-09-24 19:22 | P.SLEEP_ITS ---
Sleep Study - Home Unattended Date of Study: 09/04/24 Ordering Provider: Collin Greene APRN Interpreting Provider: Lois Vee, DO Home Sleep Study Type: Watch PAT Height: 1.8 m Weight: 104.326 kg Body Mass Index: 32.1 Neck Circumference (inches): 18.25 [place]: 17 Reason for Sleep Study Excessive daytime sleepiness Sleep History The patient is a 54-year-old male that had a sleep study ordered by the [facility] for evaluation of sleep apnea. The patient admits to snoring loudly, excessive daytime sleepiness, trouble maintaining sleep and breathing interruptions during sleep. He does admit to choking or gasping while asleep. He denies having trouble breathing on his back. He denies waking up in the morning with a headache. He admits to having a dry / sore mouth or throat in the morning. He denies nocturnal heartburn. He admits to nocturia. He denies having difficulty falling asleep. He admits to having difficulty returning to sleep if he wakes up throughout the night. He denies any hypnotic or sedative use. He denies feeling anxious about sleep. He admits to feeling tired or fatigued during the day. He admits to feeling tired or unrefreshed in the morning. He does have the urge to fall asleep during the day. He denies feeling drowsy while driving. He denies sleep paralysis, cataplexy and hypnagogic / hypnopompic hallucinations. He denies clenching or grinding his te eth. He denies kicking or jerking his legs excessively. He denies having a restless feeling in his legs. He goes to bed at 9:00 p.m. on weekdays and at 9:30 p.m. on the weekends. It takes him 30 minutes to fall asleep. He typically gets 6 hours of sleep per night. His sleep is not restorative on his days off. He denies taking any planned naps. He denies dream enactment behavior. He denies sleep walking. He consumes 1-2 cups of caffeinated beverage per day. He consumes 1 glass of an alcoholic beverage 1-2 nights per week. He denies tobacco use. He exercises 5- 7 nights per week. 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) Surgical History Surgical History Cataract extraction status History of uvulopalatopharyngoplasty Hx laparoscopic cholecystectomy 04/26 Family History Family History Father Malignant neoplasm of prostate Grandparent Heart disease Mother Kidney stone Social History Social History Smoking packs per day: 1 Smoking cigarettes per day: 20.0 Years smoked: 20 Smoking pack-years: 20.00 Smoking status: Former smoker Tobacco type: cigarettes Second hand tobacco smoke exposure: No Smoking end date: 11/07/99 Alcohol intake: current Alcohol use details: Very rare alcohol use Substance use: never Substance use type: does not use Living arrangements: with family Occupation/Education: occupation 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 Gender identity (if verbalized by the patient): Male Sexual Orientation (if Verbalized by the Patient): Straight or Heterosexual Spiritual care concerns: No Agree to blood products: Yes Medications Home Medications Medication Instructions Recorded Confirmed Type dextromethorphan IR 45 1 tablet PO BID 12/19/23 07/18/24 History mg-bupropion ER 105 mg biphasic tablet (Auvelity) finasteride 5 mg tablet 5 mg PO DAILY #30 tabs 12/19/23 07/18/24 Rx tamsulosin 0.4 mg capsule 0.4 mg PO DAILY #30 caps 12/19/23 07/18/24 Rx Adults Multivitamin 1 tab-cap PO DAILY 12/27/23 07/18/24 History bupropion HCl 150 mg 24 hr tablet, 150 mg PO DAILY 12/27/23 07/18/24 History extended release cholecalciferol (vitamin D3) 125 125 mcg PO DAILY 12/27/23 07/18/24 History mcg (5,000 unit) tablet (Vitamin D3) magnesium 235 mg PO DAILY 12/27/23 07/18/24 History brexpiprazole 0.5 mg tablet 0.5 mg PO DAILY 07/18/24 07/18/24 History (Rexulti) testosterone cypionate 200 mg/mL 200 mg IM ONCE 07/18/24 07/18/24 History intramuscular oil Sleep Procedure The sleep study was completed using LoopbackPAT a technically adequate device with seven channels: peripheral arterial tone, actigraphy, body position, snore, respiratory movement, pulse oximetry, sleep staging, and heart rate. Prior to using the device, the patient received verbal and written instructions for its application and was provided with the help desk phone number for additional telephonic instruction with 24-hour availability of qualified personnel to answer questions. The study was scored using CMS guidelines. Sleep Architecture The total recording time is 8 hrs, 48 min. The total sleep time is 7 hrs, 37 min. Sleep latency is 26 minutes. REM latency is 25 minutes. The patient had 8 episodes of waking. Sleep architecture shows 15.0% deep sleep, 57.0% light sleep, and (as % Total Sleep Time) showed NREM (Light 57.0%; Deep 15.0%), and a 28.0% stage REM. The patient spent 100.0% of total sleep time in the supine position. Sleep efficiency was 86.55. Respiratory Analysis The overall AHI (pAHI 4%:) is 18.0. The central AHI is 3.4. The AHI was 16.4 in NREM and 22.2 in REM sleep. The AHI was 18.0 in Supine and N/A in Non-supine sleep. Percent of Cruzito Bennett respirations is 0.0. Oximetry Data The oxygen desaturation index (RIK 4%:) is 17.8. The mean saturation is 92%, and the lowest saturation is 75%. Time spent with saturation < 88% is 23.7 minutes. Snoring Profile Snoring average intensity is 41 dB. The patient snored above 45 decibels for 36.8 minutes, 8.0% of sleep time. Cardiac Profile The average pulse rate is 69 beats per minutes. The lowest pulse rate is 55 bpm. The highest pulse rate reported is 102 bpm. Atrial fibrillation was not detected. Premature beats occur 0.4 per minute. Assessment and Plan Assessment and Plan (1) [place]UR[place] (obstructive sleep apnea): Code(s): G47.33 - Obstructive sleep apnea (adult) (pediatric) Status: Acute Assessment and Plan: The patient had an overall AHI of 18 with desaturation down to 75%. This is consistent with moderate sleep apnea. I recommend that the patient be prescribed AutoPAP 5-15 cm H2O, CPAP mask/filters/tubing and heated humidity. This should be used with all episodes of sleep.? Compliance should be reviewed within 31-90 days of starting therapy for usage greater than 4 hours per night greater than 70% of the nights. The patient should be asked about symptoms such as?excessive daytime sleepiness, quality of sleep, decreased nocturia, increased?mental functioning such as memory, mood, and concentration. Data The data obtained during this sleep study is adequate for interpretation. Certification This sleep study has been reviewed by a board certified sleep medicine physician.
[2024-09-24 19:23] VITALS: BMI 32.1
== END 2024-09-11 14:29 | disposition home or self-care (01) ==
LOC: ANHCSM 08:02
PROVIDERS: PCP Family Medicine Adolescent Medicine; Visit Provider Nurse Practitioner Family
DX: G47.33 Obstructive sleep apnea (adult) (pediatric) (principal); G47.10 Hypersomnia, unspecified; R06.83 Snoring
CPT/HCPCS: 95800